=== PATIENT | female | born 1965 | race Caucasian/White ===

== ENCOUNTER 2020-05-06 13:10 | Outpatient (CLI) | payer BC ==
--- NOTE | 2020-05-06 15:58 | RAD ---
LEFT KNEE FOUR VIEWS: 05/06/20 HISTORY: Left knee pain. Unilateral primary osteoarthritis of the left knee. FINDINGS/IMPRESSION: Mild degenerative changes are present. No fracture, dislocation, or bony destructions are identified. POS: ALON
--- NOTE | 2020-05-06 18:21 | BD ---
Exam: DEXA Bone Density 05/06/20 HISTORY: 55-year-old postmenopausal female for screening. Lumbar Spine: BMD (g/cm2) T-SCORE L1 0.640 -3.2 L2 0.535 -4.5 L3 0.550 -4.9 L4 0.562 -4.5 L1-L4 0.570 -4.3 Left Femoral Neck: 0.472 -3.4 Total Proximal Femur: 0.626 -2.6 Right Femoral Neck: 0.549 -2.7 Total Proximal right femur: 0.727 -1.8 Impression: Osteoporosis. This patient has a ten year WHO fracture risk for a major osteoporotic fracture of 38% and of a hip fracture of 9.9%. POS: EAA
== END 2020-05-06 13:11 | disposition home or self-care (01) ==
LOC: BICMAMMO 13:10
PROVIDERS: ATTEND Internal Medicine Rheumatology
DX: M81.0 Age-related osteoporosis without current pathological fracture (principal); M17.12 Unilateral primary osteoarthritis, left knee
CPT/HCPCS: 77080

== ENCOUNTER 2022-05-15 08:16 | Outpatient (CLI) | payer BC | END 2022-05-15 08:17 | disposition home or self-care (01) | LOC: BICMAMMO 08:16 | PROVIDERS: ATTEND Internal Medicine Rheumatology | DX: M81.0 Age-related osteoporosis without current pathological fracture (principal) | CPT/HCPCS: 77080 ==

== ENCOUNTER 2024-06-02 09:54 | Outpatient (CLI) | payer BC | END 2024-06-02 09:55 | disposition home or self-care (01) | LOC: BICMAMMO 09:54 | PROVIDERS: ATTEND Internal Medicine Rheumatology | DX: M81.0 Age-related osteoporosis without current pathological fracture (principal) | CPT/HCPCS: 77080 ==